=== PATIENT | female | born 1955 | race Hispanic/Latino ===

== ENCOUNTER → 2019-03-08 | Outpatient (CLI) | payer OTHER ==
[~2019-03-08] MED LIST: LOSARTAN POTAS100 MG PO; PENICILLIN VK PO; SIMVASTATIN20 MG PO
--- NOTE | 2019-03-08 12:05 | Diagnostic Imaging Report ---
Exam: KUB - 2 views Clinical History: Renal calculus. Comparison: None. Findings: Nonobstructive bowel gas pattern. Bowel gas partially obscures visualization of the kidneys. There is a 3 mm and a 4 mm calcification overlying the right kidney and a 5 mm calcification overlying the left kidney. Calcifications overlying the pelvis likely represent calcified phleboliths. No evidence of calcification overlying the expected course of the ureters. No acute bony abnormality. Impression: Bowel gas partially obscures visualization of the bilateral kidneys. Calcifications measuring up to 4 mm on the right and 5 mm on the left may represent renal stones or enteric contents. Signed by: Dr. Partha Ramirez MD on 03/08/2019 12:02 PM
== END ==
LOC: RAD 11:03
PROVIDERS: ATTEND Urology
DX: N20.0 Calculus of kidney (principal)
CPT/HCPCS: 74018

== ENCOUNTER → 2019-06-26 | Outpatient (CLI) | payer OTHER ==
[~2019-06-26] MED LIST changes: +OMEGA-31000 MG PO; +RANITIDINE HCL150 M1 PO; +VITAMIN D1000 UNI1 PO
--- NOTE | 2019-06-26 11:36 | Diagnostic Imaging Report ---
EXAM: CT Abdomen and Pelvis WITHOUT intravenous contrast INDICATION: Renal calculus COMPARISON: KUB of 03/08/2019 TECHNIQUE: Abdomen and pelvis were scanned utilizing a multidetector helical scanner from the lung base to the pubic symphysis without administration of IV contrast. Coronal and sagittal reformations were obtained. IV CONTRAST: None ORAL CONTRAST: None COMPLICATIONS: None RADIATION DOSE: Total DLP: 687.5 mGy*cm Dose modulation, iterative reconstruction, and/or weight based adjustment of the mA/kV was utilized to reduce the radiation dose to as low as reasonably achievable. FINDINGS: LOWER THORAX: Coronary artery atherosclerotic calcifications. HEPATOBILIARY: Subcentimeter right hepatic calcified granuloma. No other focal liver lesions. Gallbladder appears unremarkable. SPLEEN: No splenomegaly. PANCREAS: No focal masses or ductal dilatation. ADRENALS: No adrenal nodules. KIDNEYS/URETERS: 1 to 2 mm nonobstructive renal calculi at the upper pole of right and left kidney. No hydronephrosis. No solid mass lesion. PELVIC ORGANS/BLADDER: Unremarkable. PERITONEUM / RETROPERITONEUM: No free air or fluid. LYMPH NODES: No lymphadenopathy. VESSELS: Minimal scattered atherosclerotic calcifications of the nonaneurysmal abdominal aorta and major branches. GI TRACT: No distention or wall thickening. Normal appendix. BONES AND SOFT TISSUES: No acute osseous injury. No suspicious lytic or blastic lesions. Small fat-containing periumbilical hernia. IMPRESSION: Right and left renal upper pole 1 to 2 mm nonobstructive calculi. No hydronephrosis. Signed by: Hawk Pardo MD on 06/26/2019 11:33 AM
== END ==
LOC: CT 09:02
PROVIDERS: ATTEND Urology
DX: N20.0 Calculus of kidney (principal)
CPT/HCPCS: 74176

== ENCOUNTER → 2019-07-20 | Day surgery (SDC) | payer OTHER ==
[2019-07-16 13:05] LABS: BASOPHILS # (AUTO) 0.1 (0.0-0.1); BASOPHILS % 0.9 % (0.0-1.0); EOSINOPHILS # (AUTO) 0.1 (0.0-0.4); HEMATOCRIT 39.8 % (34.2-44.1); LYMPHOCYTES # (AUTO) 2.5 (1.0-3.2); LYMPHOCYTES % 37.9 % (18.0-39.1); MEAN CORPUSCULAR HEMOGLOBIN 30.7 pg (28-32); MEAN CORPUSCULAR HGB CONC 32.7 g/dL (31-35); MEAN CORPUSCULAR VOLUME 93.9 fL (81-99); MONOCYTES # (AUTO) 0.5 (0.2-0.8); MONOCYTES % 7.8 % (4.4-11.3); NEUTROPHILS # (AUTO) 3.4 (2.1-6.9); NEUTROPHILS % 51.1 % (38.7-80.0); PLATELET COUNT 255 x10e3/uL (140-360); RED BLOOD COUNT 4.24 x10e6/uL (3.6-5.1); RED CELL DISTRIBUTION WIDTH 13.2 % (11.7-14.4)
[2019-07-16 13:28] LABS: ANION GAP 14.8 mmol/L (8-16); BLOOD UREA NITROGEN 14 mg/dL (7-26); BUN/CREATININE RATIO 19 (6-25); CALCIUM 9.8 mg/dL (8.4-10.2); CARBON DIOXIDE 24 mmol/L (22-29); CHLORIDE 103 mmol/L (98-107); CREATININE, SERUM 0.73 mg/dL (0.57-1.11); EST GLOMERULAR FILTRATION RATE > 60 ML/MIN (60-); GLUCOSE 76 mg/dL (74-118); POTASSIUM 3.8 mmol/L (3.5-5.1); SODIUM 138 mmol/L (136-145)
--- NOTE | 2019-07-16 13:46 | Diagnostic Imaging Report ---
Exam: KUB Comparison: CT abdomen and pelvis, June 26, 2019 Clinical history: Preoperative clearance Findings: The previously visualized punctate nephrolithiasis in both kidneys are not seen on x-ray. This is likely beyond the resolution of the modality. There is nonobstructive bowel gas pattern with retained feces in the colon. Phleboliths are noted in bilateral pelvic regions. The regional osseous structures are unremarkable. Impression: 1. No radiographic evidence of nephrolithiasis. Signed by: Dr. Baron Rodney MD on 07/16/2019 1:42 PM
[~2019-07-20] MED LIST changes: +B&O 60MG R/S 60 MG SUPP PR ONE; +CEFTRIAXONE SOD 1 GM/NS 50 ML 50 ML IV ONE; +DEXAMETHASONE SOD PHOS INJ 4 MG/ML VIAL ONE; +FENTANYL CITRATE/PF 100MCG/2 ML INJ ONE; +HYDROMORPHONE 2MG/ML 2 MG/ML ML ONE; +IOPAMIDOL 610MG/1ML 300 MG/ML VIAL IV ONE; +LIDOCAINE HCL 2% LOCAL INJ 5 ML SDV VIAL INJ ONE; +MIDAZOLAM HCL 2 MG/2 ML VIAL ONE; +ONDANSETRON HCL INJ 2MG/ML 2ML 2 MG/ML VIAL ONE; +PROPOFOL IV EMULSION 10 MG/ML 20 ML VIAL ONE; +SEVOFLURANE INHAL SOLN 250 ML PEN BTL ONE
[2019-07-20 10:30] VITALS: BP 129/70
--- NOTE | 2019-07-20 15:58 | Operative Report ---
DATE OF PROCEDURE: 07/20/2019 SURGEON: Rick Silvestre MD PREOPERATIVE DIAGNOSES: 1. Bilateral nephrolithiasis. 2. Urinary tract infections. 3. Microscopic hematuria. POSTOPERATIVE DIAGNOSES: 1. Bilateral nephrolithiasis. 2. Urinary tract infections. 3. Microscopic hematuria. 4. Grade 2 cystocele. 5. At least grade 3 rectocele. 6. Atrophic (senile) vaginitis. OPERATIONS PERFORMED: 1. Staged right-sided extracorporeal shockwave lithotripsy (separate procedure performed for the nephrolithiasis). 2. Cystourethroscopy with bilateral ureteral catheterization and retrograde ureteropyelography (separate procedure performed for the urine tract infections and microhematuria). 3. Interpretation of retrograde ureteropyelography. 4. Supervision of fluoroscopy, no radiologist present. 5. Pelvic examination under anesthesia. ANESTHESIA: General. COMPLICATIONS: None. CLINICAL SUMMARY: Nicole Daugherty is a 63-year-old woman with urinary tract infections and microhematuria. She has bilateral nephrolithiasis. KUB revealed 4 mm calcifications on the right and 5 mm calcifications on the left. The stones were believed to be represented. CT scanning confirmed stones, but the stones were smaller. The patient was brought to the operating room for lithotripsy upon her request, even other stones are small. She is aware of the risks of bleeding, infection, injury to adjacent structures, need for additional procedures, and elected to proceed. OPERATIVE PROCEDURE IN DETAIL: Informed consent was verified, Nicole Daugherty was properly identified, taken to the operating room, placed on the lithotripsy table in supine position. Anesthesia was uneventfully begun. We could not well visualized the stones even with the CT scan films in the room with us. The patient was then carefully gently repositioned in the dorsal lithotomy position with all pressure points well padded. Her genitalia were prepared and draped in usual sterile fashion. The cystoscope sheath was inserted into the patient's urethra and the bladder was drained. Panendoscopy revealed trigonitis, no tumors, no stones, no diverticula. Normally positioned and configured, ureteral orifices were identified. An open-ended catheter was used to cannulate the left ureter and retrograde ureteropyelograms were performed, it was then inserted into the right ureter and retrograde ureteral pyelograms were performed. Interpretation of retrograde ureteropyelography contrast was instilled in retrograde fashion bilaterally. I could not appreciate revision or visualized stones on the left hand side. There was no hydronephrosis, Unobstructed drainage was observed. On the right-hand side, I could see two small filling defects in an upper pole calyx, which corresponded to the cluster of 2 and 3 mm stones for a total of 5 mm cluster in the upper pole calyx. No other filling defects were identified. We unobstructed drainage was observed fluoroscopically and there was no hydronephrosis. With the fluoroscopic guidance, a total of 3000 shocks were delivered to the calyx with a two filling defect in the upper pole of the right kidney. Once that was completed, the patient's bladder was drained. Cystoscope was withdrawn. Pelvic examination revealed a grade 2 cystocele. There was at least a grade 3, possibly grade 4 rectocele. There was atrophic (senile) vaginitis. No abnormal pelvic masses could be appreciated. The patient was then uneventfully reversed from anesthesia and taken to recovery room in stable condition. There were no complications to the procedure. She tolerated the procedure well. Plans will be to follow the patient up on an ongoing basis. Rick Silvestre MD [facility] /[id number] cc: Richi Nieves MD
== END | disposition home or self-care (01) ==
LOC: OR 06:05
PROVIDERS: ATTEND Urology
DX: N20.0 Calculus of kidney (principal); N39.0 Urinary tract infection, site not specified; R31.29 Other microscopic hematuria; N81.10 Cystocele, unspecified; N81.6 Rectocele; N95.2 Postmenopausal atrophic vaginitis; I10 Essential (primary) hypertension; E78.5 Hyperlipidemia, unspecified; K21.9 Gastro-esophageal reflux disease without esophagitis; Z87.442 Personal history of urinary calculi
CPT/HCPCS: 36415; 50590; 52005; 74018; 80048; 83970; 84550; 85025; 93005; C1758; J0696; J1100; J1170; J2001; J2250; J2405; J2704; J3010; Q9967

== ENCOUNTER → 2020-03-13 | Outpatient (CLI) | payer OTHER ==
[~2020-03-13] MED LIST changes: -B&O 60MG R/S 60 MG SUPP PR ONE; -CEFTRIAXONE SOD 1 GM/NS 50 ML 50 ML IV ONE; -DEXAMETHASONE SOD PHOS INJ 4 MG/ML VIAL ONE; -FENTANYL CITRATE/PF 100MCG/2 ML INJ ONE; -HYDROMORPHONE 2MG/ML 2 MG/ML ML ONE; -IOPAMIDOL 610MG/1ML 300 MG/ML VIAL IV ONE; -LIDOCAINE HCL 2% LOCAL INJ 5 ML SDV VIAL INJ ONE; -MIDAZOLAM HCL 2 MG/2 ML VIAL ONE; -ONDANSETRON HCL INJ 2MG/ML 2ML 2 MG/ML VIAL ONE; -PROPOFOL IV EMULSION 10 MG/ML 20 ML VIAL ONE; -SEVOFLURANE INHAL SOLN 250 ML PEN BTL ONE
--- NOTE | 2020-03-13 11:33 | Diagnostic Imaging Report ---
Exam: KUB - 2 views Indication: Renal calculi Comparison: KUB 07/16/2019, CT abdomen and pelvis 06/26/2019 Findings: No radiographically apparent renal calculi. Nonobstructive bowel gas pattern. No free air. No acute osseous injury. Impression: No radiographically apparent renal calculi. Signed by: Hawk Pardo MD on 03/13/2020 11:30 AM
== END ==
LOC: RAD 10:44
PROVIDERS: ATTEND Urology
DX: N20.0 Calculus of kidney (principal)
CPT/HCPCS: 74018

== ENCOUNTER → 2022-06-11 | Outpatient (CLI) | payer MEDICARE ==
[~2022-06-11] MED LIST changes: +IOPAMIDOL 370 MG/ML 100 ML INFUS..BTL INJ ONE
[2022-06-11 17:01] LABS: CREATININE, SERUM 0.77 mg/dL (0.57-1.11)
== END ==
LOC: CT 15:41
PROVIDERS: ATTEND Urology
DX: N26.9 Renal sclerosis, unspecified (principal)
CPT/HCPCS: 36415; 74178; 82565; 84520; Q9967

== ENCOUNTER → 2022-09-06 | Outpatient (CLI) | payer MEDICARE ==
[~2022-09-06] MED LIST changes: -IOPAMIDOL 370 MG/ML 100 ML INFUS..BTL INJ ONE
== END ==
LOC: RAD 12:16
PROVIDERS: ATTEND Urology
DX: N20.0 Calculus of kidney (principal)
CPT/HCPCS: 74018

== ENCOUNTER → 2023-06-10 | Outpatient (CLI) | payer MEDICARE ==
[~2023-06-10] MED LIST changes: +IOPAMIDOL 370 MG/ML 100 ML INFUS..BTL INJ ONE
[2023-06-10 12:26] LABS: CREATININE, SERUM 0.71 mg/dL (0.57-1.11)
== END ==
LOC: CT 11:24
PROVIDERS: ATTEND Internal Medicine Gastroenterology
DX: I85.00 Esophageal varices without bleeding (principal)
CPT/HCPCS: 36415; 71260; 82565; 84520; Q9967